=== PATIENT | female | born 1935 | race Caucasian/White ===

== ENCOUNTER 2018-07-21 19:40 | Emergency (ER) | payer BC ==
[~2018-07-21] VITALS: Ht 157.5 cm; Wt 93.0 kg
--- NOTE | 2018-07-21 19:56 | NUR ---
PT BIB [id number], S/P FALL, TRIPPED AND FELL ON FACE, WITH NOSE BLEED, ABLE TO STOP UPON ARRIVAL. AOX4 PAIN 3/10, PLACED ON ER BED 1, EVAL DONE DR RIOS ORDERS ENTERED.
--- NOTE | 2018-07-21 20:07 | NUR ---
PT TAKEN TO CT AND XR LT ELBOW.
--- NOTE | 2018-07-21 20:10 | NUR ---
SQ EPI GIVEN.
[2018-07-21] MEDS ORDERED: ACETAMINOPHEN ES 500 MG TABLET ONE (21:54)
[2018-07-21] MEDS ORDERED: ACETAMINOPHEN ES 500 MG TABLET PO ONE (22:00)
--- NOTE | 2018-07-21 22:08 | NUR ---
Patient discharged to home in stable condition. Written and verbal after care instructions given. Patient verbalizes understanding of instruction. Vs stable, with stable gait,denies any dizziness.
[2018-07-21 22:09] VITALS: BP 145/89
== END 2018-07-21 22:10 | disposition home or self-care (01) ==
LOC: ER 19:51
DX: S02.2XXA Fracture of nasal bones, initial encounter for closed fracture (principal); S50.312A Abrasion of left elbow, initial encounter; S09.8XXA Other specified injuries of head, initial encounter; I48.91 Unspecified atrial fibrillation; W01.198A Fall on same level from slipping, tripping and stumbling with subsequent striking against other object, initial encounter; Y93.89 Activity, other specified; Y92.89 Other specified places as the place of occurrence of the external cause; Y99.8 Other external cause status
CPT/HCPCS: 70450; 70486 ×2; 73080; 99284; A4606

== ENCOUNTER 2021-05-05 13:20 | Emergency (ER) | payer OTHER ==
[~2021-05-05] VITALS: Ht 157.5 cm; Wt 94.8 kg
--- NOTE | 2021-05-05 13:25 | NUR ---
PT bib son for "lightheadedness", nausea w/ noted high B/P x 1 week. PT TOLERATING R/A WELL WITH NO SOB. DENIES PAIN AT THIS TIME. CONNECTED PT TO POX AND MONITOR. SAFETY MEASURES IN PLACE
--- NOTE | 2021-05-05 13:38 | NUR ---
RAC #18G S/L; PATENT AND INTACT. BLOOD COLLECTED AND SENT TO LAB
[2021-05-05 13:47] LABS: BASOPHILS # (AUTO) 0.1 K/uL (0.0-0.2); BASOPHILS % (AUTO) 1.1 % (0.0-2.0); EOSINOPHILS % (AUTO) 2.3 % (0.0-6.0); HEMATOCRIT 46 % (33-45); HEMOGLOBIN 14.9 g/dL (11.5-14.8); LYMPHOCYTES # (AUTO) 2.8 K/uL (0.8-4.8); LYMPHOCYTES % (AUTO) 23.9 % (20.0-44.0); MEAN CORPUSCULAR HGB CONC 33 g/dl (31.0-36.0); MEAN CORPUSCULAR VOLUME 98 fL (82-100); NEUTROPHILS # (AUTO) 7.3 K/uL (1.8-8.9); NEUTROPHILS % (AUTO) 63.7 % (43.0-81.0); PLATELET COUNT (AUTO) 250 K/uL (150-450); RED BLOOD CELL COUNT(AUTO) 4.65 MIL/uL (4.0-5.2); WHITE BLOOD COUNT (AUTO) 11.5 K/uL (4.3-11.0)
[2021-05-05 13:54] LABS: CALCIUM, SERUM 9.1 mg/dL (8.5-10.1); CARBON DIOXIDE 28 mmol/L (21-32); CHLORIDE 101 mmol/L (98-107); GLUCOSE 105 mg/dL (74-106); POTASSIUM 4.1 mmol/L (3.5-5.1); SODIUM SERUM 138 mmol/L (136-145); UREA NITROGEN, BLOOD 21 mg/dL (7-18)
--- NOTE | 2021-05-05 14:14 | NUR ---
LAW KENT AT PT'S BEDSIDE
--- NOTE | 2021-05-05 15:03 | NUR ---
Patient discharged to home in stable condition. Written and verbal after care instructions given. Patient verbalizes understanding of instruction. PT ambulatory with a steady gait. DC'D IV WITH NO ACTIVE BLEEDING
--- NOTE | 2021-05-05 15:05 | NUR ---
IV removed. Catheter intact and site benign. Pressure and 4x4 applied to site. No bleeding noted.
[2021-05-05 15:38] VITALS: BP 142/81
== END 2021-05-05 15:38 | disposition home or self-care (01) ==
LOC: ER 13:36
DX: I11.0 Hypertensive heart disease with heart failure (principal); I50.9 Heart failure, unspecified; I48.91 Unspecified atrial fibrillation
CPT/HCPCS: 36415; 71045-TC; 80048-TC; 83880; 84484-TC; 85025-TC